=== PATIENT | female | born 1995 | race Caucasian/White ===

== ENCOUNTER 2017-12-15 18:36 | Day surgery (SDC) | payer OTHER ==
[2017-12-15] MEDS ORDERED: Lactated Ringer's 1,000 ML IV SCH (18:45)
[2017-12-15 19:06] LABS: #Eosinphils 0.1 thou/uL (0.0-0.7); #Monocytes 0.4 thou/uL (0.11-0.59); #Neutrophils 3.7 thou/uL (1.40-6.50); %Basophils 0.4 % (0.0-1.0); %Eosinophils 1.2 % (0.0-10.0); %Monocytes 6.5 % (0.0-10.0); %Neutrophils 59.9 % (42.0-75.0); Hemoglobin 11.1 g/dL (12.0-16.0); Mean Corpuscular HGB CONC 33.6 g/dL (32.0-36.0); Mean Corpuscular Hemoglobin 31.2 pg (27.0-31.0); Mean Corpuscular Volume 92.9 fL (78.0-98.0); Platelet Count 288 thou/uL (130-400); RBC Distribution Width 11.8 % (11.5-14.5); Red Blood Cell (RBC) Count 3.56 mill/uL (4.20-5.40); White Blood Cell (WBC) Count 6.2 thou/uL (4.8-10.8)
[2017-12-15 19:25] LABS: Bilirubin Negative (Negative); Blood, Urine Negative (Negative); Clarity TURBID (Clear); Glucose, Urine (Dipstick) Negative (Negative); Leukocyte Moderate (Negative); Nitrite Negative (Negative); Protein, Urine (Dipstick) Negative (Neg-Trace); Specific Gravity, Urine 1.017 (1.002-1.036); Urobilinogen 0.2 mg/dL (0.2-1.0); pH, Urine 7.5 (5.0-9.0)
[2017-12-15 19:27] LABS: Bacteria/HPF 1+ HPF (None Seen); Hyaline Casts/LPF 4-6 HYALINE CAST LPF (0-3 Hyaline); Pathc Cast-AUWi Flag 1.01 (0-2.49); RBC/HPF 0-3 HPF (0-3); Squamous Epithelial 0-3 HPF (0-3); WBC/HPF 21-50 HPF (0-3)
[2017-12-15 19:28] LABS: ALT (SGPT) 15 U/L (8-55); AST (SGOT) 17 U/L (5-34); Albumin 3.6 g/dL (3.5-5.0); Alkaline Phosphatase 97 U/L (40-150); Anion Gap 11 mmol/L (10-20); BUN (Urea Nitrogen) 5 mg/dL (7.0-18.7); Bilirubin, Total 0.2 mg/dL (0.2-1.2); Calc. Creatinine Clearance 0 mL/min (70-130); Calcium 8.5 mg/dL (7.8-10.44); Carbon Dioxide 22 mmol/L (22-29); Chloride 108 mmol/L (98-107); Estimated GFR-MDRD Greater than 90; Globulin 2.6 g/dL (2.4-3.5); Glucose 76 mg/dL (70-105); Potassium 3.8 mmol/L (3.5-5.1); Protein, Total 6.2 g/dL (6.0-8.3); Sodium 137 mmol/L (136-145)
--- NOTE | 2017-12-16 04:33 | SS ---
LABOR AND DELIVERY TRIAGE NOTE DATE OF EVALUATION: 12/15/2017 REGULAR PHYSICIAN: Nahomi Sow M.D. EVALUATING PHYSICIAN: Nader Kirkpatrick M.D. CHIEF COMPLAINT: Nausea, vomiting, diarrhea x5 days. HISTORY OF PRESENT ILLNESS: Ms. Gupta is a 22-year-old white G1, P0 with an estimated date of confinement of 02/19/2018 who presents complaining of nausea, vomiting, and diarrhea over the last 5 days. She was seen in clinic with these complaints and was referred here. She denies ruptured membranes or vaginal bleeding. PAST MEDICAL HISTORY: Anxiety. PAST SURGICAL HISTORY: Appendectomy and gallbladder. CURRENT MEDICATIONS: vitamins and Diclegis. ALLERGIES: No known allergies. SOCIAL HISTORY: Denies tobacco, alcohol, or drug use. FAMILY HISTORY: Unremarkable. REVIEW OF SYSTEMS: Denies fever, chills, recent ill contacts, vaginal bleeding or ruptured membranes. PHYSICAL EXAMINATION: VITAL SIGNS: Initial vital signs in triage show blood pressure 108/62, pulse is 65, temperature 98.8. ABDOMEN: Soft, nontender and gravid. heart tones are stable. There are no decelerations. No uterine contractions are seen. LABORATORY DATA: White count 6.2, hemoglobin and hematocrit 11.1 and 33.0. Platelet count 288,000. Chemistry: Sodium 137, potassium 3.8, BUN 5, creatinine 0.59, total bilirubin 0.2, AST 17, ALT 15, alkaline phosphatase 97. Urinalysis shows a specific gravity of 1.017 with negative protein, negative glucose, negative ketones, negative blood, negative nitrites, moderate leukocyte esterase with a microscopic showing 0-3 rbc's, 21-50 wbc's, with 0-3 squamous cells, and 1+ bacteria. ASSESSMENT: 1. A 30-week intrauterine . 2. Nausea, vomiting, and diarrhea; normal laboratories at present. 3. Suspected urinary tract infection. PLAN: The patient will be sent home with precautions. She was told to keep herself hydrated at home. A prescription for Phenergan 25 mg #30 one p.o. q.6 hours p.r.n. nausea, was given to her to fill. She was also told that she can use Lomotil at home for diarrhea symptoms. She was also given a prescription for Keflex 500 mg 1 p.o. q.i.d. for 7 days to use when she is feeling better and tolerating p.o. better. A urine culture was obtained prior to her discharge. She was given complete instructions and voiced understanding of these. She is sent home in good condition. EMA
== END 2017-12-15 20:35 | disposition home or self-care (01) ==
LOC: L&D/OP 18:36
PROVIDERS: ATTEND Obstetrics & Gynecology
DX: O99.89 Other specified diseases and conditions complicating pregnancy, childbirth and the puerperium (principal); R11.2 Nausea with vomiting, unspecified; R19.7 Diarrhea, unspecified; F41.9 Anxiety disorder, unspecified; Z3A.30 30 weeks gestation of pregnancy
CPT/HCPCS: 80053; 81003; 81015; 85025; 87086; 96360; 96361; 99282

== ENCOUNTER 2018-02-11 13:43 | Day surgery (SDC) | payer OTHER ==
[2018-02-11 14:14] VITALS: BP 143/96; TEMP 98.2; BMI 25.5
[2018-02-11] MEDS ORDERED: Morphine 10 MG/ML VIAL IM SCH (14:30)
[2018-02-11] MEDS ORDERED: Lactated Ringer's 1,000 ML IV SCH (15:45)
[2018-02-11 15:53] LABS: Bilirubin Negative (Negative); Blood, Urine Negative (Negative); Clarity CLEAR (Clear); Glucose, Urine (Dipstick) Negative (Negative); Leukocyte Negative (Negative); Nitrite Negative (Negative); Protein, Urine (Dipstick) Negative (Neg-Trace); Specific Gravity, Urine 1.015 (1.002-1.036); Urobilinogen 0.2 mg/dL (0.2-1.0)
[2018-02-11 15:55] LABS: Bacteria/HPF None Seen HPF (None Seen); Hyaline Casts/LPF 0-3 HYALINE CAST LPF (0-3 Hyaline); Pathc Cast-AUWi Flag 0.43 (0-2.49); RBC/HPF 0-3 HPF (0-3); Squamous Epithelial 0-3 HPF (0-3); WBC/HPF 0-3 HPF (0-3)
[2018-02-11 17:45] LABS: Hemoglobin 12.1 g/dL (12.0-16.0); Mean Corpuscular HGB CONC 33.2 g/dL (32.0-36.0); Mean Corpuscular Hemoglobin 30.8 pg (27.0-31.0); Mean Corpuscular Volume 92.5 fL (78.0-98.0); Mean Platelet Volume 8.6 fL (7.4-10.4); Platelet Count 265 thou/uL (130-400); RBC Distribution Width 11.6 % (11.5-14.5); Red Blood Cell (RBC) Count 3.95 mill/uL (4.20-5.40); White Blood Cell (WBC) Count 8.9 thou/uL (4.8-10.8)
[2018-02-11 18:16] LABS: ALT (SGPT) 19 U/L (8-55); AST (SGOT) 30 U/L (5-34); Albumin 3.5 g/dL (3.5-5.0); Alkaline Phosphatase 187 U/L (40-150); Anion Gap 18 mmol/L (10-20); BUN (Urea Nitrogen) 7 mg/dL (7.0-18.7); Bilirubin, Total 0.2 mg/dL (0.2-1.2); Calc. Creatinine Clearance 201 mL/min (70-130); Calcium 9.1 mg/dL (7.8-10.44); Carbon Dioxide 18 mmol/L (22-29); Chloride 106 mmol/L (98-107); Estimated GFR-MDRD Greater than 90; Globulin 2.9 g/dL (2.4-3.5); Glucose 63 mg/dL (70-105); Potassium 4.5 mmol/L (3.5-5.1); Protein, Total 6.4 g/dL (6.0-8.3); Sodium 137 mmol/L (136-145); Uric Acid 3.8 mg/dL (2.6-6.0)
--- NOTE | 2018-02-11 18:44 | PRG ---
DATE OF SERVICE: 02/11/2018 PRIMARY URBAN DESIGNER: Dr. Nahomi Sow. CHIEF COMPLAINT: Abdominal pains. HISTORY OF PRESENT ILLNESS: The patient is a 22-year-old G1, P0 female with an intrauterine pregnanc y at 34 weeks and 4 days, who presented to the Labor and Delivery at around noon today having abdomin al pains. She reports have been coming about 4-6 times an hour. Patient reports in the last hour, t hey have been lasting 1-2 minutes. She denies any recent illness, fever, fall, headache, chest pain, shortness of breath. She has had nausea and vomiting controlled with Diclegis daily. Denies diarrh ea or constipation. Denies any new rashes. She does report an increase in her discharge and a salamanca e in color. Denies any leakage of fluid or vaginal bleeding, denies urinary urgency or frequency. PAST MEDICAL HISTORY: Anxiety. PAST SURGICAL HISTORY: Appendectomy and cholecystectomy. CURRENT MEDICATIONS: vitamins and Diclegis and venlafaxine. ALLERGIES: No known drug allergies. SOCIAL HISTORY: Denies drug, alcohol or tobacco use. FAMILY HISTORY: Unremarkable. REVIEW OF SYSTEMS: Per HPI. OB LABS: Unavailable at time of dictation. PHYSICAL EXAMINATION: VITAL SIGNS: Blood pressure is 130s-140s/80s-90s over the course of 4 hours. GENERAL: She appears to be in no acute distress. She is alert and oriented, cooperative and pleasan t to interact with. HEENT: Normocephalic, atraumatic. LUNGS: Clear to auscultation bilaterally. HEART: Regular rate and rhythm. ABDOMEN: Soft and gravid. EXTREMITIES: Nontender, nonedematous. CERVICAL EXAM: Per nursing staff is closed, thick and high at 2 hours from initial visit. The patie nt reports through the end of her evaluation or time here with us that her pains have gotten much bet ter with IV fluid hydration. heart tracing performed for abdominal pain and NST for duration of 2 hours. Baseline is noted to be in the 130s with moderate long-term variability, positive 15 x 15 accelerations, no deceleratio ns and the tocometer showing irritability with contractions present, but again much improved per betty ent report. LABORATORY STUDIES: Show urine negative for protein, nitrites, leukocyte esterase, white blood cells , bacteria. Her H[employer]EL SECURITY OFFICER-3 is positive for Gardnerella, negative for Trichomonas and Bren. A CMP, CBC, and uric acid are pending. Patient has also been given a 24-hour urine collection to start at home. ASSESSMENT AND PLAN: The patient is a 22-year-old female with an intrauterine at 34 weeks and 4 days having contractions, but no evidence of labor. Fetus has a category 1 tracing and a reactive NST. Fetus has a reactive NST and category 1 tracing and no evidence of labor. The betty ent, however, does have what appears to be some persistent mild elevations in blood pressure. She jose s no other signs or symptoms of preeclampsia with negative protein in her urine. CMP, uric acid and CBC are pending. The patient will be discharged to home with instructions to take her blood pressure twice a day at home and has been given equipment too for a 24-hour urine collection that she can tur n into the lab. Patient has been asked not to work on Tuesday until she has seen Dr. Andersen who can t hen reevaluate these blood pressures and her log.
[2018-02-12 17:03] LABS: Collection Duration 24 hrs; Urine Total Volume 3000 mL (600-1600)
[2018-02-12 17:26] LABS: Protein, Urine Less than 10 mg/dL (1-14)
== END 2018-02-11 17:30 | disposition home or self-care (01) ==
LOC: L&D/OP 13:43
PROVIDERS: ATTEND Student in an Organized Health Care Education/Training Program
DX: O60.03 Preterm labor without delivery, third trimester (principal); Z3A.34 34 weeks gestation of pregnancy
CPT/HCPCS: 36415; 80053; 81001; 84156; 84550; 85027; 87480; 87510; 87660; 96360; 99285

== ENCOUNTER 2018-03-05 16:22 | Inpatient (IN) | payer OTHER ==
[2018-03-05 17:07] VITALS: BMI 25.2
[2018-03-05] MEDS ORDERED: Lidocaine 1% (PF) 30 ML VIAL ONE (17:33)
[2018-03-05] MEDS ORDERED: Magnesium Sulfate 20 gm/500 ml 20 GM/500 ML BAG ONE (17:34)
[2018-03-05] MEDS ORDERED: Ondansetron PF 4 MG/2 ML Vial IVP PRN (17:34)
[2018-03-05] MEDS ORDERED: Ibuprofen 800 MG TAB PO PRN (17:34)
[2018-03-05] MEDS ORDERED: NS / Oxytocin 40 units/1000ml 1,000 ML IV PRN (17:34)
[2018-03-05] MEDS ORDERED: HYDROcodone/Acetaminophen 5/325 mg Tablet PO PRN ×2 (17:34)
[2018-03-05] MEDS ORDERED: Meperidine HCl/PF 25 MG/ML VIAL IM/IV PRN (17:34)
[2018-03-05] MEDS ORDERED: Promethazine HCl 25 MG/ML VIAL IM PRN (17:34)
[2018-03-05] MEDS ORDERED: Carboprost 250 MCG/ML AMP IM PRN (17:34)
[2018-03-05] MEDS ORDERED: Lidocaine 1% (PF) 30 ML VIAL SC PRN (17:34)
[2018-03-05] MEDS ORDERED: Butorphanol Tartrate 1 MG/ML VIAL SLOW IVP PRN (17:34)
[2018-03-05] MEDS ORDERED: Zolpidem Tartrate 5 MG TAB PO PRN (17:34)
[2018-03-05] MEDS ORDERED: Misoprostol 200 MCG TAB PR PRN (17:34)
[2018-03-05] MEDS ORDERED: Calcium Gluc 4.6 MEQ/10 ML (100 MG/ML) SLOW IVP PRN (17:38)
--- NOTE | 2018-03-05 17:44 | PDOC.LDHP ---
Labor and Delivery H&P Chief complaint: contractions, other (HQA sice ( PM last evenin) HPI: 22 yo WF EDC= 03/21 presents c/o UCs q 5 mins and FLYNN since 9PM. Current gestational age (weeks): 37 Due date: 03/21/18 Dating criteria: last menstrual period Grav: 1 Para: 0 OB History Details: PNC with Juanjose complicated by elevated BPs in 3rd trimester. Current complications: gestational hypertension Abnormal US findings: No Current medications: pre- vitamins Previous surgical history: appendectomy, cholecystectomy, other (depression/ anxiety) Allergies/Adverse Reactions: Allergies Allergy/AdvReac Type Severity Reaction Status Date / Time No Known Allergies Allergy Verified 03/05/18 17:00 Social history: none - Physical Exam General: breathing through contractions Heart: RRR Lungs: CTAB Abdomen: gravid Extremeties: trace edema FHT: category 1 [place] contractions every: q 5-7 mins - Vaginal Exam cm dilated: 1 Station: -1 - OB Labs Blood type: A RH: positive Antibody Screen: negative HIV: negative RPR: negative HEPSAg: negative 1 hour GCT: negative GBS: negative Rubella: immune - Assessment L&D Assessment: term patient in labor (PIH) - Plan Plan: admit to L&D, magnesium for seizure prophylaxis, anesthesia consult for pain management, other (Will proceed with induction)
[2018-03-05] MEDS ORDERED: Magnesium Sulfate 20 GM/WATER 500 ML BAG IVPB SCH (17:45)
[2018-03-05] MEDS ORDERED: Lactated Ringer's 1,000 ML IV SCH (17:45)
[2018-03-05] MEDS: Lactated Ringer's 1,000 ML IV SCH (17:49)
[2018-03-05] MEDS ORDERED: Labetalol HCl 100 MG/20 ML VIAL SLOW IVP PRN (18:02)
[2018-03-05 18:03] LABS: Hemoglobin 13.3 g/dL (12.0-16.0); Mean Corpuscular HGB CONC 35.5 g/dL (32.0-36.0); Mean Corpuscular Hemoglobin 32.6 pg (27.0-31.0); Mean Corpuscular Volume 91.9 fL (78.0-98.0); Mean Platelet Volume 9.2 fL (7.4-10.4); Platelet Count 250 thou/uL (130-400); RBC Distribution Width 11.6 % (11.5-14.5); Red Blood Cell (RBC) Count 4.09 mill/uL (4.20-5.40)
[2018-03-05 18:04] LABS: Bilirubin Negative (Negative); Blood, Urine Negative (Negative); Clarity CLEAR (Clear); Glucose, Urine (Dipstick) Negative (Negative); Leukocyte Negative (Negative); Nitrite Negative (Negative); Protein, Urine (Dipstick) 100 mg/dL (Neg-Trace); Specific Gravity, Urine 1.013 (1.002-1.036); Urobilinogen 0.2 mg/dL (0.2-1.0)
[2018-03-05 18:05] LABS: Bacteria/HPF None Seen HPF (None Seen); Hyaline Casts/LPF 0-3 HYALINE CAST LPF (0-3 Hyaline); Pathc Cast-AUWi Flag 0.14 (0-2.49); RBC/HPF 0-3 HPF (0-3)
[2018-03-05 18:08] LABS: Renal Epithelial None Seen HPF (0-3); Transitional Epithelial NONE SEEN HPF (0-3)
[2018-03-05] MEDS: Magnesium Sulfate 20 gm/500 ml 20 GM/500 ML BAG IVPB SCH (18:09)
[2018-03-05 18:22] LABS: ALT (SGPT) 24 U/L (8-55); AST (SGOT) 28 U/L (5-34); Albumin 3.4 g/dL (3.5-5.0); Alkaline Phosphatase 310 U/L (40-150); Anion Gap 15 mmol/L (10-20); BUN (Urea Nitrogen) 9 mg/dL (7.0-18.7); Bilirubin, Total 0.2 mg/dL (0.2-1.2); Calc. Creatinine Clearance 171 mL/min (70-130); Calcium 8.8 mg/dL (7.8-10.44); Carbon Dioxide 19 mmol/L (22-29); Chloride 104 mmol/L (98-107); Estimated GFR-MDRD Greater than 90; Globulin 2.9 g/dL (2.4-3.5); Glucose 71 mg/dL (70-105); Potassium 4.1 mmol/L (3.5-5.1); Protein, Total 6.3 g/dL (6.0-8.3); Sodium 134 mmol/L (136-145)
[2018-03-05 18:40] LABS: HBSAg Index 0.88 S/CO (0-0.99); Hep B Surf Ag Non-Reactive S/CO (NonReactive)
[2018-03-05 18:42] LABS: Syphilis Antibody Nonreactive (Nonreactive); Syphilis Antibody Index 0.03 S/CO (<1.00 Non-Reactive)
--- NOTE | 2018-03-05 19:05 | PDOC.EVN ---
Event Note - Event Note Event Note: Mg 4 gm load given, now @ 2 gm/hr. BPs now 140/90's. Fhts stable, no decels. UCs q 5-7 mins. Labs: H/H= 13/37, plts= 250K, Cr/BUN= .68/9. Tbili= 0.2, ALT/AST= 28/24. Urine shows +2 protein. Plan: Cont. MgS04, start pitocin.
[2018-03-05] MEDS: NS w/ Oxytocin 10 units 500 ML IV SCH (19:20)
--- NOTE | 2018-03-06 00:23 | PDOC.EVN ---
Event Note - Event Note Event Note: Resting. BPs 130/90s. Fhts stable. UCs irregular. Pit at 18 mu/min. Mg at 2 gms/hr. Plan: Cont. induction.
[2018-03-06] MEDS: Lactated Ringer's 1,000 ML IV SCH ×3 (00:27→20:00)
[2018-03-06] MEDS: Acetaminophen 500 MG TAB PO PRN ×2 (01:43→08:12)
[2018-03-06] MEDS: Magnesium Sulfate 20 gm/500 ml 20 GM/500 ML BAG IVPB SCH ×2 (01:44→11:22)
--- NOTE | 2018-03-06 05:11 | PDOC.EVN ---
Event Note - Event Note Event Note: BPs 120/70's. Mg at 2 gms/hr. SVE at 0400 by Labor RN was 3/50/vtx. FHTs stable. UCs q 2-4 min. Pit at 20 mu/min. Plan: Cont. induction.
[2018-03-06] MEDS: NS w/ Oxytocin 10 units 500 ML IV SCH ×2 (06:27→17:35)
[2018-03-06] MEDS ORDERED: Fentanyl 4 mcg/Bup 0.1% Cadd 100 ML ONE ×2 (08:18→15:42)
[2018-03-06] MEDS ORDERED: ePHEDrine/0.9% NaCl/PF SYRINGE 50 mg/10 ml SLOW IVP PRN (09:07)
[2018-03-06] MEDS ORDERED: Naloxone HCl 0.4 mg/ml Vial IVP PRN ×2 (09:07)
[2018-03-06] MEDS ORDERED: diphenhydrAMINE 50 MG/ML VIAL IVP PRN (09:07)
[2018-03-06] MEDS ORDERED: Ondansetron PF 4 MG/2 ML Vial IVP PRN ×2 (09:07→19:58)
[2018-03-06] MEDS ORDERED: Acetaminophen 325 MG TAB PO PRN (09:07)
[2018-03-06] MEDS ORDERED: Lactated Ringer's 500 ML IV PRN (09:07)
[2018-03-06] MEDS ORDERED: Eucerin (Mineral Oil/Petrolatum,White) 30 gm Jar TOP PRN (09:07)
[2018-03-06] MEDS ORDERED: Promethazine HCl 25 MG/ML VIAL IM PRN (09:07)
[2018-03-06] MEDS ORDERED: Communication Order-Pharmacy FS SCH (09:15)
[2018-03-06] MEDS ORDERED: Fentanyl 4 mcg/Bupivacaine 0.1% Cassette 100 ML EPIDURAL SCH (09:15)
[2018-03-06] MEDS ORDERED: ePHEDrine/0.9% NaCl/PF SYRINGE 50 mg/10 ml ONE (11:11)
[2018-03-06] MEDS ORDERED: Bupivacaine/Epinephrine 0.25% 30 ML VIAL ONE (11:11)
--- NOTE | 2018-03-06 13:30 | PDOC.LDPN ---
Labor & Delivery Progress Note - Subjective Subjective: comfortable - Objective Vital signs reviewed and normal: yes General: NAD Uterine fundus: non tender Dilation: 4 Effacement: 75% Station: -2 FHT: category 1 [place] contractions every: 7-8min -: Previously pitocin was turned off for decels following epidural, now Cat 1 and pitocin restart, on 12mu/min. Cont titration until adequate labor pattern with cervical change. BP wnl, no sx PIH, on mag. Since sx have resolved with tylenol and BP are nl, labs are nl will DC Mag for now. Cont to monitor closely. If severe features will restart Mag.
--- NOTE | 2018-03-06 18:54 | PDOC.OPDEL ---
OB Operative/Delivery Note Delivery Dr/Surgeon: Juanjose Assist: n/a Pre-Delivery Diagnosis: medically indicated induction (GHTN) Procedure/Post Delivery Dx: spontaneous vaginal delivery Weeks gestation: 37 Anesthesia: epidural - Findings A Sex: female - 1 min: 8 - 5 min: 9 - Additional Findings/Plan Placenta delivered: spontaneous Repaired Obstetrical Laceration: 1st degree (repaired with 2-0 vicryl for hemostasis) Estimated blood loss: 242 cc qbl Post delivery plan: routine recovery
[2018-03-06] MEDS ORDERED: Milk Of Magnesia 30 ML UDCUP PO PRN (19:58)
[2018-03-06] MEDS ORDERED: NS / Oxytocin 40 units/1000ml 1,000 ML IV SCH (19:58)
[2018-03-06] MEDS ORDERED: Benzocaine/Menthol 20-0.5% 60 ML CAN TOP PRN (19:58)
[2018-03-06] MEDS ORDERED: diphenhydrAMINE 25 MG CAP PO PRN (19:58)
[2018-03-06] MEDS ORDERED: Preparation H Ointment 28 GM TUBE PR PRN (19:58)
[2018-03-06] MEDS ORDERED: HYDROcodone/Acetaminophen 5/325 mg Tablet PO PRN ×2 (19:58)
[2018-03-06] MEDS ORDERED: Lanolin Ointment 7 GM TUBE TOP PRN (19:58)
[2018-03-06] MEDS ORDERED: Bisacodyl 10 MG SUPP PR PRN (19:58)
[2018-03-06] MEDS: Ibuprofen 800 MG TAB PO SCH (20:12)
[2018-03-06] MEDS ORDERED: Morphine 10 MG/ML VIAL ONE (22:42)
[2018-03-06] MEDS ORDERED: Ondansetron PF 4 MG/2 ML Vial IVP SCH (22:45)
[2018-03-06] MEDS ORDERED: Morphine 4 MG/ML VIAL SLOW IVP SCH (22:45)
[2018-03-06] MEDS ORDERED: Butorphanol Tartrate 1 MG/ML VIAL ONE ×2 (23:08)
[2018-03-06] MEDS ORDERED: Carboprost 250 MCG/ML AMP ONE (23:09)
[2018-03-06] MEDS ORDERED: Butorphanol Tartrate 1 MG/ML VIAL SLOW IVP SCH (23:15)
[2018-03-06] MEDS: Docusate Calcium (SURFAK) 240 MG CAP PO SCH (23:58)
[2018-03-07] MEDS: CEFAZOLIN 2 GM/50 ML-DEXTROSE 2 GM in Premix Bag 1 BAG IVPB SCH ×2 (01:52→09:27)
--- NOTE | 2018-03-07 02:25 | PRG ---
DATE OF SERVICE: 03/06/2018 PROGRESS NOTE PRIMARY EVENT EXECUTIVE: Dr. Nahomi Sow. SUBJECTIVE: The patient is a 22-year-old female, who is by several hours when I was called to the room with concerns of hemorrhage. The patient is reported to have lost about 1 L of blood loss prior to my evaluation, with approximately 300 mL at the time of delivery and another 650 mL between delivery and my time at the bedside. The nurse reports some concerns about a rise in the uterine fundus and blood loss that did not appear to be diminishing, though in the last hour she reported 100 mL. The patient was reporting severe cramping and was unable to tolerate any kind of physical exam and was given 6 mg of morphine IV, which did not get her very comfortable. Two additional milligrams of Stadol were given IV, which was sufficient to allow a physical exam. The patient at that time had vitals, blood pressure 159/110, pulse in the low 100s. She had good color in her skin and good capillary refill. The patient was placed on oxygen as she did become quite sedated after the 2 mg of Stadol, still was coherent and responsive. Initially, a bedside ultrasound was performed and the uterus was noted to be full of blood clots. On bimanual exam, the clot was palpable and the uterus was above the umbilicus with vigorous bimanual massage and manual extraction of the clot and the patient's assistance with pushing, the clots were felt. On further exam, there were no membranes that were palpable or other placental tissue. By this time, the patient was comfortable enough that I was able to do a thorough exam exploring much of the uterine cavity. The copious clot that was removed at this time allowed the uterus to contract down to the level of the umbilicus; however, the patient continued to have bleeding. At this point, a speculum exam was performed to evaluate the vaginal canal and cervix itself and with the use of about 10 to 15 vanessa swabs blood in the vaginal vault was removed sufficient to visualize the cervix and with the aid of ring forceps, the uterine cavity was gently explored. Bleeding persisted, though not vigorous. It was more intense and expectant management would allow. By this time, the patient had received two bags of Pitocin, 800 mcg of Cytotec rectally , 250 mcg of Hemabate with no satisfactory results. The uterus was fairly contracted, though continued to bleed. The cervix was intact. A Bejarano catheter was in place and the bladder was drained prior to the onset of the procedure. At this point , the decision was made to place a Bakri balloon in an attempt to stop the bleeding. This was placed easily into the uterine cavity and a total of 180 mL of fluid was used to inflate the uterine balloon sufficient that her bleeding had stopped. Once this was confirmed, the vaginal packing was placed to help keep the balloon in place and the speculum was removed, as total blood loss of approximately 2100 mL by weight was calculated after this point. The patient continued to have good vital signs, good color. The patient has been started on IV antibiotics for prophylaxis, specifically Ancef 2 g q.8 hours for two doses and metronidazole 500 mg 3 times a day for 3 doses. PLAN: At this time is to begin to deflate the uterine balloon in approximately 12 hours with hopes that she will have become hemostatic by then. Her primary OB, Dr. Sow has been notified and will be resuming care in the morning. Job ID: [id number] MTDD
[2018-03-07] MEDS: Lactated Ringer's 1,000 ML IV SCH ×2 (03:13→09:27)
[2018-03-07] MEDS ORDERED: CEFAZOLIN 2 GM in Sodium Chloride 0.9% 100 ML IVPB SCH (06:00)
--- NOTE | 2018-03-07 06:24 | PDOC.PP ---
Post Progress Note Post Day #: 1 PO intake tolerated: yes Flatus: no Ambulation: no Vital Signs (12 hours) Temp Pulse Resp BP Pulse Ox 03/07/18 00:08 96 03/06/18 23:30 99.0 F 86 16 136/63 Weight Weight 186 lb - Physical Examination General: NAD Cardiovascular: RRR Respiratory: non-labored breathing Abdominal: no distention, appropriately TTP Fundus firm & at: umb Skin: no rash Perineum: swollen right labia, no blood on peripad Neurological: no gross focal deficits Psychiatric: normal affect Result Diagrams: 03/07/18 13:07 03/05/18 17:29 Additional Labs: Post Labs Blood Type A POSITIVE 03/05/18 17:29 Hep Bs Antigen Non-Reactive S/CO (NonReactive) 03/05/18 17:29 - Assessment/Plan 22yo P1001 s/p TSVD at 37w6d 2/ GHTN c/b PPH VSSAF PPH- hgb 13.3--> total ebl 2L--> pending, no sx anemia or ongoing bleeding, bakri balloon in since 0000 with 240cc, no output in bakri drain. vag pack and trujillo in place, on ancef. Will begin deflation at 1200 today. UOP borderline overnight 30-50cc/hr Child up for adoption, paperwork will be signed on DC Ok for regular diet. Rh pos RImm Cont LICU care until bakri out. Addendum from 1200: Hgb 13.3-->ebl 2200cc-->7.8-->6.4, no ongiong vaginal bleeding from vagina or catheter, c/w equilibration. Acute blood loss anemia. No sx anemia. Transfuse 1U PRBC, recheck hgb tomorrow am.
[2018-03-07 06:52] LABS: Hemoglobin 7.8 g/dL (12.0-16.0); Mean Corpuscular HGB CONC 33.1 g/dL (32.0-36.0); Mean Corpuscular Hemoglobin 30.8 pg (27.0-31.0); Mean Platelet Volume 8.4 fL (7.4-10.4); Platelet Count 263 thou/uL (130-400); RBC Distribution Width 11.6 % (11.5-14.5); Red Blood Cell (RBC) Count 2.54 mill/uL (4.20-5.40); White Blood Cell (WBC) Count 12.2 thou/uL (4.8-10.8)
[2018-03-07] MEDS: Prenatal Vitamin 1 TAB PO SCH (07:31)
[2018-03-07] MEDS: Ferrous Sulfate 325 MG TAB PO SCH ×2 (07:31→18:23)
[2018-03-07] MEDS: Ibuprofen 800 MG TAB PO SCH ×3 (07:31→21:32)
[2018-03-07] MEDS: Docusate Calcium (SURFAK) 240 MG CAP PO SCH ×2 (07:31→21:31)
[2018-03-07] MEDS ORDERED: Adacel (T-DAP) 0.5 ML SYRINGE IM ONE (09:00)
[2018-03-07] MEDS: metroNIDAZOLE 500 MG TAB PO SCH ×2 (09:27→14:39)
[2018-03-07 13:35] LABS: Hemoglobin 6.4 g/dL (12.0-16.0); Mean Corpuscular HGB CONC 33.5 g/dL (32.0-36.0); Mean Corpuscular Hemoglobin 31.2 pg (27.0-31.0); Mean Corpuscular Volume 93.4 fL (78.0-98.0); Mean Platelet Volume 8.3 fL (7.4-10.4); Platelet Count 208 thou/uL (130-400); RBC Distribution Width 11.7 % (11.5-14.5); Red Blood Cell (RBC) Count 2.06 mill/uL (4.20-5.40); White Blood Cell (WBC) Count 7.5 thou/uL (4.8-10.8)
[2018-03-08] MEDS: Ibuprofen 800 MG TAB PO SCH ×2 (06:08→14:41)
[2018-03-08 06:19] LABS: Mean Corpuscular HGB CONC 33.9 g/dL (32.0-36.0); Mean Corpuscular Hemoglobin 31.4 pg (27.0-31.0); Mean Corpuscular Volume 92.7 fL (78.0-98.0); Mean Platelet Volume 7.7 fL (7.4-10.4); Platelet Count 175 thou/uL (130-400); RBC Distribution Width 12.5 % (11.5-14.5); Red Blood Cell (RBC) Count 2.24 mill/uL (4.20-5.40); White Blood Cell (WBC) Count 9.1 thou/uL (4.8-10.8)
[2018-03-08] MEDS: Prenatal Vitamin 1 TAB PO SCH (10:02)
[2018-03-08] MEDS: Docusate Calcium (SURFAK) 240 MG CAP PO SCH (10:02)
[2018-03-08] MEDS: Ferrous Sulfate 325 MG TAB PO SCH ×2 (10:02→18:05)
[2018-03-08 11:41] VITALS: TEMP 98.2
--- NOTE | 2018-03-08 11:42 | PDOC.PP ---
Post Progress Note Post Day #: 2 PO intake tolerated: yes Flatus: yes Ambulation: yes Vital Signs (12 hours) Temp Pulse Resp BP Pulse Ox 03/08/18 11:40 98.2 F 85 20 138/83 03/08/18 08:00 131/90 03/08/18 07:50 98.5 F 79 20 154/99 H 97 03/08/18 04:40 98.1 F 89 18 130/76 03/08/18 00:43 98.7 F 79 18 155/88 H Weight Weight 186 lb - Physical Examination General: NAD Respiratory: non-labored breathing Abdominal: no distention, appropriately TTP Fundus firm & at: umb-3 Extremities: negative homans (B) Skin: no rash Neurological: no gross focal deficits Psychiatric: normal affect Result Diagrams: 03/08/18 12:45 03/05/18 17:29 Additional Labs: Post Labs Blood Type A POSITIVE 03/05/18 17:29 Hep Bs Antigen Non-Reactive S/CO (NonReactive) 03/05/18 17:29 - Assessment/Plan PPD2 s/p TSVD c/b GHTN and PPH, acute blood loss anemia Doing well VSSAF Hgb stable at 7.2 after transfusion 1u PRBC yesterday, cont iron on DC, no sx anemia, lochia appropriate Giving baby up for adoption, pt is coping well and has good support, cont effexor. Will est care with therapist. Rh pos RImm DC home FU 6w
[2018-03-08 13:02] LABS: Hemoglobin 7.2 g/dL (12.0-16.0)
[2018-03-08 22:51] VITALS: BP 144/85
== END 2018-03-08 20:48 | disposition home or self-care (01) | DRG 768 ==
LOC: L&D/OP 16:22 → L&D 17:45 → 3SW 03-07 18:41
PROVIDERS: ADMIT Student in an Organized Health Care Education/Training Program; ATTEND Student in an Organized Health Care Education/Training Program
PROC: 10E0XZZ Delivery of Products of Conception, External Approach (ICD-10-PCS; principal; 2018-03-06)
PROC: 0HQ9XZZ Repair Perineum Skin, External Approach (ICD-10-PCS; 2018-03-06)
PROC: 3E033VJ Introduction of Other Hormone into Peripheral Vein, Percutaneous Approach (ICD-10-PCS; 2018-03-06)
PROC: 0W3R7ZZ Control Bleeding in Genitourinary Tract, Via Natural or Artificial Opening (ICD-10-PCS; 2018-03-07)
PROC: 30233N1 Transfusion of Nonautologous Red Blood Cells into Peripheral Vein, Percutaneous Approach (ICD-10-PCS; 2018-03-07)
DX: O13.4 Gestational [pregnancy-induced] hypertension without significant proteinuria, complicating childbirth (principal); Z37.0 Single live birth; D62 Acute posthemorrhagic anemia; O70.0 First degree perineal laceration during delivery; O72.1 Other immediate postpartum hemorrhage; Z3A.37 37 weeks gestation of pregnancy; O90.81 Anemia of the puerperium
CPT/HCPCS: 36415; 36430; 51702; 80053; 85027; 86780; 86850; 86900; 86901; 87340; 99285; J0595; J2001; J2270; J2405; J3475; J3490; P9016